=== PATIENT | male | born 1965 | race Caucasian/White ===

== ENCOUNTER 2018-10-30 05:48 | Emergency (ER) | payer OTHER ==
[2018-10-30 06:16] VITALS: BP 175/90; PULSE 82; TEMP 98.8; BMI 30.7
== END 2018-10-30 06:48 | disposition left against medical advice (07) ==
LOC: JER 05:48
DX: Z53.21 Procedure and treatment not carried out due to patient leaving prior to being seen by health care provider (principal)
CPT/HCPCS: 99281-25

== ENCOUNTER 2019-02-25 09:12 | Emergency (ER) | payer OTHER ==
[2019-02-25 09:44] VITALS: BP 146/75; PULSE 95; TEMP 102; BMI 70.7
== END 2019-02-25 09:52 | disposition left against medical advice (07) ==
LOC: JER 09:12
DX: R50.9 Fever, unspecified (principal)
CPT/HCPCS: 99283-25

== ENCOUNTER 2020-01-06 21:52 | Inpatient (IN) | payer OTHER ==
[2020-01-06] MEDS ORDERED: VANCOMYCIN 1,000 MG in DEXTROSE 5%-WATER - 250 ML IVPB ONE (22:13)
[2020-01-06] MEDS ORDERED: PIPERACILLIN/TAZOB 4.5 GM 4.5 GM in DEXTROSE 5%-WATER 100 ML IVPB ONE (22:13)
[2020-01-06] MEDS ORDERED: ACETAMINOPHEN 1000 MG/100 ML VIAL (NON FORMULARY) IVPB ONE (22:26)
[2020-01-06 22:35] LABS: VENOUS BASE EXCESS 2.9 mmol/L (-2-2); VENOUS O2 SATURATION 89.4 % (70-80); VENOUS PCO2 38.4 mmHg (38-52); VENOUS PH 7.461 (7.310-7.410)
[2020-01-06 22:36] LABS: BASO % 0.5 % (0-2.0); EOS % 2.9 % (0-4.5); HEMATOCRIT 40.9 % (35.4-49); HEMOGLOBIN 13.8 GM/dL (11.7-16.9); LYMPH % 18.2 % (8-40); MCH 22.7 pg (25.7-33.7); MCHC 33.6 g/dl (32.0-35.9); MEAN CELL VOLUME 67.5 fl (80-96); MEAN PLT VOLUME 8.3 fl (7.5-11.1); MONO % 17.8 % (3.8-10.2); NEUT % 60.6 % (42.8-82.8); PLATELET COUNT 245 K/MM3 (134-434); RBC 6.06 M/mm3 (4.00-5.60); RDW 17.6 % (11.9-15.9); WHITE BLOOD COUNT 8.9 K/mm3 (4.0-10.0)
[2020-01-06] MEDS ORDERED: ACETAMINOPHEN INJECTION 100 ML IVPB ONE (22:36)
[2020-01-06] MEDS ORDERED: PIPERACILLIN/TAZOB 4.5 GM 4.5 GM/100 ML BAG IVPB ONE (22:36)
[2020-01-06] MEDS ORDERED: VANCOMYCIN 1 GRAM (PRE-DOCKED) 1,000 MG/250 ML BAG IVPB ONE (22:37)
[2020-01-06 22:45] LABS: PH,URINE >= 9.0 (5.0-8.0); URINE APPEARANCE CLEAR; URINE BILIRUBIN NEGATIVE (NEGATIVE); URINE COLOR YELLOW; URINE GLUCOSE (UA) NEGATIVE (NEGATIVE); URINE KETONE NEGATIVE (NEGATIVE); URINE LEUK ESTERASE NEGATIVE (NEGATIVE); URINE NITRITE NEGATIVE (NEGATIVE); URINE PROTEIN NEGATIVE (NEGATIVE); URINE UROBILINOGEN 0.2 mg/dL (0.2-1.0)
[2020-01-06 22:50] LABS: INR 1.03 (0.83-1.09); PROTHROMBIN TIME (PATIENT) 12.5 SEC (9.7-13.0)
[2020-01-06 22:52] LABS: ACTIVATED PTT 29.8 SECONDS (25.2-36.5)
[2020-01-06 22:56] LABS: COCAINE, UR NEGATIVE ng/ml (CUTOFF=300); METHADONE, UR NEGATIVE ng/ml (CUTOFF=300); OPIATES, URI NEGATIVE ng/ml (CUTOFF=300); PHENCYCLIDINE,URINE NEGATIVE ng/ml (CUTOFF=25); URINE AMPHETAMINES NEGATIVE ng/ml (CUTOFF=500); URINE BARBITURATES NEGATIVE ng/ml (CUTOFF=200); URINE BENZODIAZEPINES NEGATIVE ng/ml (CUTOFF=200)
[2020-01-06 23:04] LABS: ALBUMIN 3.1 g/dl (3.4-5.0); BLOOD UREA NITROGEN 9.4 mg/dL (7-18)
[2020-01-06 23:08] LABS: CREATININE 0.5 mg/dL (0.55-1.3)
[2020-01-06 23:09] LABS: BILIRUBIN,TOTAL 0.4 mg/dL (0.2-1); TOT PROT 7.7 g/dl (6.4-8.2)
[2020-01-06 23:15] LABS: N-TERMINAL BNP 153.3 pg/ml (5-125)
[2020-01-06] MEDS ORDERED: SODIUM CHLORIDE 500 ML IV STA (23:18)
[2020-01-07] MEDS ORDERED: ACETAMINOPHEN 1000 MG/100 ML VIAL (NON FORMULARY) IVPB PRN (02:21)
[2020-01-07 05:16] VITALS: BMI 31.1
[2020-01-07] MEDS ORDERED: PIPERACILLIN/TAZOBACTAM 3.375 GM VIAL IVPB ONE ×2 (05:42→08:51)
[2020-01-07] MEDS ORDERED: DEXTROSE 5%-WATER - 50 ML IVPB ONE ×2 (05:42→08:51)
[2020-01-07] MEDS: PIPERACILLIN/TAZOB 3.375 GM 3.375 GM in DEXTROSE 5%-WATER - 50 ML IVPB SCH ×2 (06:21→09:44)
[2020-01-07 07:37] LABS: BASO % 0.3 % (0-2.0); HEMATOCRIT 40.6 % (35.4-49); HEMOGLOBIN 13.7 GM/dL (11.7-16.9); LYMPH % 18.3 % (8-40); MCH 22.9 pg (25.7-33.7); MCHC 33.8 g/dl (32.0-35.9); MEAN CELL VOLUME 67.8 fl (80-96); MEAN PLT VOLUME 7.5 fl (7.5-11.1); MONO % 14.5 % (3.8-10.2); NEUT % 64.9 % (42.8-82.8); RBC 5.99 M/mm3 (4.00-5.60); RDW 18.1 % (11.9-15.9); WHITE BLOOD COUNT 7.8 K/mm3 (4.0-10.0)
[2020-01-07 07:50] LABS: POTASSIUM 3.8 mmol/L (3.5-5.1)
[2020-01-07 08:06] LABS: ALBUMIN 3.2 g/dl (3.4-5.0); MAGNESIUM 2.2 mg/dL (1.8-2.4)
[2020-01-07 08:07] LABS: BLOOD UREA NITROGEN 4.9 mg/dL (7-18)
[2020-01-07 08:09] LABS: CREATININE 0.5 mg/dL (0.55-1.3); PHOSPHOROUS 2.7 mg/dL (2.5-4.9)
[2020-01-07 08:10] LABS: TOT PROT 7.8 g/dl (6.4-8.2)
[2020-01-07 08:12] LABS: BILIRUBIN,TOTAL 0.7 mg/dL (0.2-1)
[2020-01-07 09:42] LABS: PLATELET ESTIMATE NORMAL
[2020-01-07] MEDS ORDERED: ENOXAPARIN NA (PORCINE) 40 MG/0.4 ML DISP.SYRIN SQ SCH (10:00)
[2020-01-07] MEDS ORDERED: BACITRACIN 15 GM TUBE TOPICAL OINTMENT TP SCH (10:00)
[2020-01-07 10:15] LABS: PLATELET COUNT 235 K/MM3 (134-434)
[2020-01-07 11:15] VITALS: BP 140/70; PULSE 72; TEMP 98.5
[2020-01-07] MEDS ORDERED: VANCOMYCIN 1 GRAM (PRE-DOCKED) 1,000 MG/250 ML BAG IVPB SCH (12:00)
[2020-01-08] MEDS ORDERED: PIPERACILLIN/TAZOB 3.375 GM 3.375 GM in DEXTROSE 5%-WATER - 50 ML IVPB SCH (02:00)
[2020-01-08] MEDS ORDERED: VANCOMYCIN 1 GRAM (PRE-DOCKED) 1,000 MG/250 ML BAG IVPB SCH (12:00)
== END 2020-01-07 11:13 | disposition left against medical advice (07) | DRG 383 ==
LOC: JER 21:52 → JERBED 23:57 → J8W 01-07 04:38
PROVIDERS: ADMIT Internal Medicine; ATTEND Family Medicine
DX: L03.115 Cellulitis of right lower limb (principal); L03.116 Cellulitis of left lower limb; F31.9 Bipolar disorder, unspecified; D72.829 Elevated white blood cell count, unspecified; F19.10 Other psychoactive substance abuse, uncomplicated; R79.1 Abnormal coagulation profile; J98.11 Atelectasis; I11.0 Hypertensive heart disease with heart failure; E88.09 Other disorders of plasma-protein metabolism, not elsewhere classified; I50.9 Heart failure, unspecified; L97.828 Non-pressure chronic ulcer of other part of left lower leg with other specified severity; L97.818 Non-pressure chronic ulcer of other part of right lower leg with other specified severity; F32.9 Major depressive disorder, single episode, unspecified; E66.9 Obesity, unspecified; Z68.31 Body mass index [BMI] 31.0-31.9, adult
CPT/HCPCS: 36415; 71045-TC-FY; 80053; 80307; 81003; 82803; 83036; 83605; 83735; 83880; 84100; 84484; 85025; 85379; 85610; 85730; 86140; 87040; 87086; 93005; 93010; 99285-25; C9803; J0131; U0003

== ENCOUNTER 2020-10-21 03:03 | Inpatient (IN) | payer OTHER ==
[2020-10-21 03:58] LABS: HEMATOCRIT 42.4 % (35.4-49); HEMOGLOBIN 13.1 GM/dL (11.7-16.9); MCHC 30.8 g/dl (32.0-35.9); MEAN CELL VOLUME 51.9 fl (80-96); MEAN PLT VOLUME 8.1 fl (7.5-11.1); PLATELET COUNT 463 10^3/uL (134-434); RBC 8.18 M/mm3 (4.00-5.60); RDW 21.4 % (11.9-15.9)
[2020-10-21 03:59] LABS: WHITE BLOOD COUNT 30.3 K/mm3 (4.0-10.0)
[2020-10-21 04:08] LABS: INR 1.15 (0.83-1.09); PROTHROMBIN TIME (PATIENT) 14.1 SEC (9.7-13.0)
[2020-10-21 04:09] LABS: VENOUS BASE EXCESS -13.5 mmol/L (-2-2); VENOUS O2 SATURATION 99.2 % (70-80); VENOUS PCO2 49.4 mmHg (38-52)
[2020-10-21 04:10] LABS: ACTIVATED PTT 31.8 SECONDS (25.2-36.5)
[2020-10-21 04:13] LABS: VENOUS PH 7.121 (7.310-7.410)
[2020-10-21] MEDS ORDERED: VANCOMYCIN 1 GM in D5W (PRE-DOCKED) 1,000 MG/250 ML IVPB ONE (04:13)
[2020-10-21] MEDS ORDERED: PIPERACILLIN/TAZOB 3.375 GM 3.375 GM in DEXTROSE 5%-WATER - 50 ML IVPB ONE (04:13)
[2020-10-21] MEDS ORDERED: MIDAZOLAM IN 0.9 % SOD.CHLORID 100 MG/100 ML PLAST..BAG IVPB SCH ×2 (04:15→19:27)
[2020-10-21] MEDS ORDERED: levETIRAcetam 500 MG/5 ML INJECTION VIAL IVPB ONE ×2 (04:16→04:26)
[2020-10-21 04:17] LABS: CHLORIDE 85 mmol/L (98-107); SODIUM 127 mmol/L (136-145)
[2020-10-21 04:19] LABS: ALBUMIN 3.4 g/dl (3.4-5.0); ANION GAP 26 MMOL/L (8-16); BLOOD UREA NITROGEN 20.2 mg/dL (7-18); CALCIUM 9.1 mg/dL (8.5-10.1); CO2 15 mmol/L (21-32); GLUCOSE,RANDOM 241 mg/dL (74-106)
[2020-10-21 04:21] LABS: CREATININE 1.7 mg/dL (0.55-1.3); SGOT/AST 20 U/L (15-37); SGPT/ALT 19 U/L (13-61)
[2020-10-21 04:24] LABS: BILIRUBIN,TOTAL 0.7 mg/dL (0.2-1); TOT PROT 10.2 g/dl (6.4-8.2)
[2020-10-21 04:25] LABS: ALK PHOS 233 U/L (45-117)
[2020-10-21] MEDS ORDERED: PIPERACILLIN/TAZOB 3.375 GM 3.375 GM/50 ML BAG IVPB ONE (04:27)
[2020-10-21] MEDS ORDERED: VANCOMYCIN 1 GRAM (PRE-DOCKED) 1,000 MG/250 ML BAG IVPB ONE (04:27)
[2020-10-21 04:29] LABS: LACTIC ACID > 15.0 mmol/L (0.4-2.0)
[2020-10-21] MEDS ORDERED: ACETAMINOPHEN 1000 MG/100 ML VIAL (NON FORMULARY) IVPB ONE (04:34)
[2020-10-21] MEDS ORDERED: ACETAMINOPHEN INJECTION 100 ML IVPB ONE (04:54)
[2020-10-21 05:42] LABS: ANISOCYTOSIS 2+; MACROCYTOSIS 0; PLATELET ESTIMATE NORMAL
[2020-10-21] MEDS ORDERED: PROPOFOL 1,000,000 MCG/100 ML VIAL ONE (05:43)
[2020-10-21] MEDS ORDERED: LACTATED RINGERS SOLUTION 1,000 ML/1,000 ML INFUS.BAG IV SCH ×2 (05:45→13:29)
[2020-10-21] MEDS: PROPOFOL 1,000,000 MCG/100 ML VIAL IVPB SCH ×2 (05:55→13:28)
[2020-10-21 05:57] LABS: EPI CELLS 26 /uL (0-25.1); HYALINE CASTS 43 /uL (0-3.1); PH,URINE 5.5 (5.0-8.0); URINE APPEARANCE TURBID; URINE BILIRUBIN NEGATIVE (NEGATIVE); URINE COLOR DK YELLOW; URINE GLUCOSE (UA) TRACE (NEGATIVE); URINE KETONE TRACE (NEGATIVE); URINE LEUK ESTERASE NEGATIVE (NEGATIVE); URINE NITRITE NEGATIVE (NEGATIVE); URINE PROTEIN 4+ (NEGATIVE)
[2020-10-21 06:29] LABS: URINE AMPHETAMINES NEGATIVE (NEGATIVE)
[2020-10-21 06:46] LABS: COCAINE, UR NEGATIVE (NEGATIVE); METHADONE, UR NEGATIVE (NEGATIVE); OPIATES, URI POSITIVE (NEGATIVE); PHENCYCLIDINE,URINE NEGATIVE (NEGATIVE); URINE BARBITURATES NEGATIVE (NEGATIVE); URINE BENZODIAZEPINES NEGATIVE (NEGATIVE)
[2020-10-21 07:33] LABS: URINE BACTERIA 4551.6 /uL (0-1359); URINE RBC 573.8 /uL (0-23.9); URINE WBC 5675.5 /uL (0-25.8); YEAST NON SEEN (NEGATIVE)
[2020-10-21] MEDS ORDERED: LACTATED RINGERS SOLUTION 1000 ML INFUS.BAG IV ONE (08:15)
[2020-10-21] MEDS ORDERED: SODIUM CHLORIDE 0.9% 500 ML INFUS.BAG IV ONE (08:23)
[2020-10-21] MEDS ORDERED: FENTANYL NS IVPB 500 MCG/100 ML BAG IVPB SCH (09:30)
[2020-10-21] MEDS ORDERED: HYDROmorphone HCl 2 MG/ML VIAL ONE ×5 (09:59→11:39)
[2020-10-21] MEDS ORDERED: ROCURONIUM BROMIDE 50 MG/5 ML SYRINGE ONE ×2 (09:59→11:51)
[2020-10-21] MEDS ORDERED: MUPIROCIN 2% TOPICAL OINTMENT FOR DECOLONIZATION NS SCH ×2 (10:00→22:00)
[2020-10-21] MEDS ORDERED: ENOXAPARIN NA (PORCINE) 40 MG/0.4 ML DISP.SYRIN SQ SCH (10:00)
[2020-10-21] MEDS ORDERED: PROPOFOL 20 ML ONE ×2 (10:58)
[2020-10-21 11:22] LABS: BLOOD UREA NITROGEN 24.6 mg/dL (7-18); MAGNESIUM 2.2 mg/dL (1.8-2.4)
[2020-10-21 11:25] LABS: BILIRUBIN,TOTAL 0.7 mg/dL (0.2-1); CREATININE 1.2 mg/dL (0.55-1.3); PHOSPHOROUS 4.3 mg/dL (2.5-4.9); TOT PROT 8.9 g/dl (6.4-8.2)
[2020-10-21 11:27] LABS: LACTIC ACID 2.1 mmol/L (0.4-2.0)
[2020-10-21 11:28] LABS: HEMATOCRIT 40.3 % (35.4-49); HEMOGLOBIN 12.1 GM/dL (11.7-16.9); MCHC 30.1 g/dl (32.0-35.9); MEAN CELL VOLUME 50.4 fl (80-96); MEAN PLT VOLUME 8.1 fl (7.5-11.1); PLATELET COUNT 305 10^3/uL (134-434); RDW 20.7 % (11.9-15.9); WHITE BLOOD COUNT 27.5 K/mm3 (4.0-10.0)
[2020-10-21 11:29] LABS: MCH 15.2 pg (25.7-33.7)
[2020-10-21] MEDS ORDERED: MIDAZOLAM HCL 2 MG/2 ML SINGLE DOSE VIAL ONE (11:51)
[2020-10-21] MEDS ORDERED: PIPERACILLIN/TAZOB 3.375 GM 3.375 GM in DEXTROSE 5%-WATER - 50 ML IVPB SCH ×2 (12:00→18:00)
[2020-10-21 12:05] LABS: ANISOCYTOSIS 3+; MACROCYTOSIS 0; PLATELET ESTIMATE NORMAL; ROULEAU 0
[2020-10-21] MEDS ORDERED: LABETALOL HCL 5 MG/1 ML (100MG/20 ML VIAL) IVPUSH PRN ×2 (14:14→14:19)
[2020-10-21] MEDS: SODIUM CHLORIDE 1,000 ML IV SCH ×2 (14:30→20:53)
[2020-10-21] MEDS: HEPARIN NA (PORCINE) 5,000 UNITS/ML 1ML VIAL SQ SCH ×3 (15:00→21:10)
[2020-10-21] MEDS ORDERED: FENTANYL IVPB 500 MCG/100 ML BAG IVPB ONE (15:55)
[2020-10-21] MEDS ORDERED: PT OWN MED DRAWER 7, Y5N ONE (17:07)
[2020-10-21] MEDS ORDERED: DEXTROSE 5%-WATER - 50 ML IVPB ONE (17:40)
[2020-10-21] MEDS ORDERED: PIPERACILLIN/TAZOBACTAM 3.375 GM VIAL IVPB ONE (17:40)
[2020-10-21] MEDS ORDERED: PROPOFOL 1,000,000 MCG/100 ML VIAL IVPB SCH (19:27)
[2020-10-21] MEDS: FENTANYL NS IVPB 500 MCG/100 ML BAG IVPB SCH (19:30)
[2020-10-21] MEDS: CHLORHEXIDINE GLUCONATE 4% CLEANSER FOR DECOLONIZATION TP SCH (21:01)
[2020-10-21] MEDS: MUPIROCIN 2% TOPICAL OINTMENT FOR DECOLONIZATION NS SCH (21:01)
[2020-10-21] MEDS ORDERED: CHLORHEXIDINE GLUCONATE 4% CLEANSER FOR DECOLONIZATION TP SCH ×2 (22:00)
[2020-10-22] MEDS: DEXTROSE 5%-LACTATED RINGERS 1,000 ML IV SCH ×2 (01:05→13:03)
[2020-10-22] MEDS ORDERED: DEXTROSE 5%-WATER - 50 ML IVPB ONE ×3 (01:24→17:24)
[2020-10-22] MEDS ORDERED: PIPERACILLIN/TAZOBACTAM 3.375 GM VIAL IVPB ONE ×3 (01:24→17:24)
[2020-10-22] MEDS: PIPERACILLIN/TAZOB 3.375 GM 3.375 GM in DEXTROSE 5%-WATER - 50 ML IVPB SCH ×3 (01:26→17:26)
[2020-10-22] MEDS: FENTANYL NS IVPB 500 MCG/100 ML BAG IVPB SCH ×3 (03:30→21:22)
[2020-10-22] MEDS: SODIUM CHLORIDE 1,000 ML IV SCH (04:00)
[2020-10-22] MEDS: HEPARIN NA (PORCINE) 5,000 UNITS/ML 1ML VIAL SQ SCH ×3 (05:49→21:22)
[2020-10-22 06:55] LABS: BASO % 0.1 % (0-2.0); HEMATOCRIT 36.4 % (35.4-49); HEMOGLOBIN 11.1 GM/dL (11.7-16.9); LYMPH % 5.8 % (8-40); MCHC 30.4 g/dl (32.0-35.9); MEAN PLT VOLUME 8.1 fl (7.5-11.1); MONO % 13.9 % (3.8-10.2); NEUT % 80.2 % (42.8-82.8); PLATELET COUNT 272 10^3/uL (134-434); RDW 20.2 % (11.9-15.9); WHITE BLOOD COUNT 16.2 K/mm3 (4.0-10.0)
[2020-10-22 06:57] LABS: MCH 15.5 pg (25.7-33.7); RBC 7.14 M/mm3 (4.00-5.60)
[2020-10-22 07:07] LABS: ALBUMIN 2.5 g/dl (3.4-5.0); CALCIUM 8.2 mg/dL (8.5-10.1); MAGNESIUM 2.4 mg/dL (1.8-2.4)
[2020-10-22 07:09] LABS: BLOOD UREA NITROGEN 32.3 mg/dL (7-18)
[2020-10-22 07:11] LABS: CREATININE 0.9 mg/dL (0.55-1.3)
[2020-10-22 07:12] LABS: BILIRUBIN,TOTAL 0.8 mg/dL (0.2-1); PHOSPHOROUS 3.7 mg/dL (2.5-4.9); TOT PROT 7.5 g/dl (6.4-8.2)
[2020-10-22] MEDS: MUPIROCIN 2% TOPICAL OINTMENT FOR DECOLONIZATION NS SCH ×2 (09:00→21:22)
[2020-10-22] MEDS ORDERED: morphine CARPU-JECT 4 MG/1 ML DISP.SYRIN IVPUSH PRN (12:30)
[2020-10-22] MEDS ORDERED: LACTATED RINGERS SOLUTION 1,000 ML/1,000 ML INFUS.BAG IV SCH (12:30)
[2020-10-22] MEDS ORDERED: HYDROmorphone HCL CARPU-JECT 2 MG/1 ML DISP.SYRIN IVPUSH PRN (12:52)
[2020-10-22] MEDS ORDERED: HYDROmorphone HCl 2 MG/ML VIAL ONE (12:54)
[2020-10-22] MEDS: PANTOPRAZOLE SODIUM 40 MG VIAL IVPUSH SCH (12:59)
[2020-10-22] MEDS: LABETALOL HCL 5 MG/1 ML (100MG/20 ML VIAL) IVPUSH PRN ×4 (13:01→21:23)
[2020-10-22] MEDS: morphine SULFATE 4 MG/ML VIAL IVPUSH PRN (13:10)
[2020-10-22] MEDS: PROPOFOL 1,000,000 MCG/100 ML VIAL IVPB SCH ×2 (13:29→20:00)
[2020-10-22] MEDS ORDERED: SODIUM CHLORIDE 1,000 ML IV SCH (14:15)
[2020-10-22] MEDS ORDERED: MIDAZOLAM IN 0.9 % SOD.CHLORID 1 MG/1 ML PLAST..BAG ONE (20:57)
[2020-10-22] MEDS: CHLORHEXIDINE GLUCONATE 4% CLEANSER FOR DECOLONIZATION TP SCH (21:22)
[2020-10-22] MEDS: MIDAZOLAM 100 MG in SODIUM CHLORIDE 100 ML IVPB SCH (21:22)
[2020-10-23] MEDS: PROPOFOL 1,000,000 MCG/100 ML VIAL IVPB SCH ×2 (01:00→12:45)
[2020-10-23] MEDS ORDERED: PIPERACILLIN/TAZOBACTAM 3.375 GM VIAL IVPB ONE ×3 (02:06→17:23)
[2020-10-23] MEDS ORDERED: DEXTROSE 5%-WATER - 50 ML IVPB ONE ×3 (02:06→17:24)
[2020-10-23] MEDS: PIPERACILLIN/TAZOB 3.375 GM 3.375 GM in DEXTROSE 5%-WATER - 50 ML IVPB SCH ×3 (02:28→17:43)
[2020-10-23] MEDS: FENTANYL NS IVPB 500 MCG/100 ML BAG IVPB SCH ×2 (02:33→19:40)
[2020-10-23] MEDS: HEPARIN NA (PORCINE) 5,000 UNITS/ML 1ML VIAL SQ SCH ×3 (06:22→21:15)
[2020-10-23 07:09] LABS: BASO % 0.2 % (0-2.0); EOS % 0.2 % (0-4.5); HEMATOCRIT 32.2 % (35.4-49); HEMOGLOBIN 9.5 GM/dL (11.7-16.9); LYMPH % 5.7 % (8-40); MCHC 29.5 g/dl (32.0-35.9); MEAN CELL VOLUME 51.6 fl (80-96); MEAN PLT VOLUME 8.7 fl (7.5-11.1); MONO % 9.3 % (3.8-10.2); NEUT % 84.6 % (42.8-82.8); PLATELET COUNT 238 10^3/uL (134-434); RBC 6.24 M/mm3 (4.00-5.60); RDW 20.6 % (11.9-15.9); WHITE BLOOD COUNT 16.4 K/mm3 (4.0-10.0)
[2020-10-23 07:17] LABS: MCH 15.2 pg (25.7-33.7)
[2020-10-23 07:21] LABS: CALCIUM 8.1 mg/dL (8.5-10.1)
[2020-10-23 07:23] LABS: ALBUMIN 2.2 g/dl (3.4-5.0); BLOOD UREA NITROGEN 21.4 mg/dL (7-18); MAGNESIUM 2.2 mg/dL (1.8-2.4)
[2020-10-23 07:26] LABS: CREATININE 0.7 mg/dL (0.55-1.3); PHOSPHOROUS 1.7 mg/dL (2.5-4.9)
[2020-10-23 07:28] LABS: TOT PROT 6.6 g/dl (6.4-8.2)
[2020-10-23] MEDS: PANTOPRAZOLE SODIUM 40 MG VIAL IVPUSH SCH (09:35)
[2020-10-23] MEDS ORDERED: POTASSIUM PHOSPHATE 30 MM in SODIUM CHLORIDE 250 ML IVPB ONE (09:45)
[2020-10-23] MEDS: MUPIROCIN 2% TOPICAL OINTMENT FOR DECOLONIZATION NS SCH ×2 (09:46→21:11)
[2020-10-23] MEDS: DEXMEDETOMIDINE IN 0.9 % NACL 400 MCG/100 ML VIAL IVPB SCH ×2 (10:49→21:12)
[2020-10-23] MEDS: DEXTROSE 5%-LACTATED RINGERS 1,000 ML IV SCH ×2 (12:41→19:40)
[2020-10-23] MEDS ORDERED: PT OWN MED DRAWER 7, Y5N ONE ×2 (15:24→19:45)
[2020-10-23] MEDS ORDERED: ACETAMINOPHEN INJECTION 100 ML IVPB ONE (20:38)
[2020-10-23] MEDS: MIDAZOLAM 100 MG in SODIUM CHLORIDE 100 ML IVPB SCH (21:11)
[2020-10-23] MEDS: CHLORHEXIDINE GLUCONATE 4% CLEANSER FOR DECOLONIZATION TP SCH (21:11)
[2020-10-24] MEDS ORDERED: DEXTROSE 5%-WATER - 50 ML IVPB ONE ×3 (00:01→17:28)
[2020-10-24] MEDS ORDERED: PIPERACILLIN/TAZOBACTAM 3.375 GM VIAL IVPB ONE ×3 (00:01→17:28)
[2020-10-24] MEDS: DEXMEDETOMIDINE IN 0.9 % NACL 400 MCG/100 ML VIAL IVPB SCH ×4 (01:15→09:55)
[2020-10-24] MEDS: PROPOFOL 1,000,000 MCG/100 ML VIAL IVPB SCH ×3 (01:16→13:20)
[2020-10-24] MEDS: PIPERACILLIN/TAZOB 3.375 GM 3.375 GM in DEXTROSE 5%-WATER - 50 ML IVPB SCH ×3 (01:18→17:35)
[2020-10-24] MEDS: FENTANYL NS IVPB 500 MCG/100 ML BAG IVPB SCH ×2 (01:27→19:27)
[2020-10-24] MEDS: HEPARIN NA (PORCINE) 5,000 UNITS/ML 1ML VIAL SQ SCH ×3 (05:23→22:30)
[2020-10-24 07:37] LABS: BASO % 0.1 % (0-2.0); EOS % 0.3 % (0-4.5); HEMATOCRIT 28.2 % (35.4-49); HEMOGLOBIN 8.5 GM/dL (11.7-16.9); LYMPH % 8.8 % (8-40); MEAN CELL VOLUME 51.2 fl (80-96); MEAN PLT VOLUME 8.4 fl (7.5-11.1); MONO % 9.4 % (3.8-10.2); NEUT % 81.4 % (42.8-82.8); PLATELET COUNT 217 10^3/uL (134-434); RBC 5.51 M/mm3 (4.00-5.60); RDW 20.7 % (11.9-15.9); WHITE BLOOD COUNT 10.3 K/mm3 (4.0-10.0)
[2020-10-24 08:01] LABS: BLOOD UREA NITROGEN 13.3 mg/dL (7-18); CALCIUM 7.5 mg/dL (8.5-10.1)
[2020-10-24 08:03] LABS: MCH 15.3 pg (25.7-33.7)
[2020-10-24 08:05] LABS: CREATININE 0.5 mg/dL (0.55-1.3); PHOSPHOROUS 1.8 mg/dL (2.5-4.9)
[2020-10-24 08:40] LABS: ANISOCYTOSIS 3+; MACROCYTOSIS 0; PLATELET ESTIMATE NORMAL
[2020-10-24] MEDS ORDERED: POTASSIUM PHOSPHATE 30 MM in DEXTROSE 5%-WATER - 250 ML IVPB ONE (09:30)
[2020-10-24] MEDS: PANTOPRAZOLE SODIUM 40 MG VIAL IVPUSH SCH (09:47)
[2020-10-24] MEDS: MUPIROCIN 2% TOPICAL OINTMENT FOR DECOLONIZATION NS SCH ×2 (10:18→22:30)
[2020-10-24] MEDS: LABETALOL HCL 5 MG/1 ML (100MG/20 ML VIAL) IVPUSH PRN (10:18)
[2020-10-24] MEDS ORDERED: ACETAMINOPHEN 1000 MG/100 ML VIAL (NON FORMULARY) IVPB PRN (10:23)
[2020-10-24] MEDS ORDERED: LORazepam 2 MG/ML SDV VIAL IVPUSH ONE (13:00)
[2020-10-24] MEDS ORDERED: LORazepam 2 MG/ML SDV VIAL IVPUSH PRN (22:00)
[2020-10-24] MEDS: CHLORHEXIDINE GLUCONATE 4% CLEANSER FOR DECOLONIZATION TP SCH (22:30)
[2020-10-24] MEDS: DEXTROSE 5%-LACTATED RINGERS 1,000 ML IV SCH (23:45)
[2020-10-25] MEDS ORDERED: DEXTROSE 5%-WATER - 50 ML IVPB ONE ×3 (00:36→18:04)
[2020-10-25] MEDS ORDERED: PIPERACILLIN/TAZOBACTAM 3.375 GM VIAL IVPB ONE ×3 (00:36→18:04)
[2020-10-25] MEDS: PIPERACILLIN/TAZOB 3.375 GM 3.375 GM in DEXTROSE 5%-WATER - 50 ML IVPB SCH ×3 (01:12→18:05)
[2020-10-25] MEDS: HEPARIN NA (PORCINE) 5,000 UNITS/ML 1ML VIAL SQ SCH ×3 (06:10→21:05)
[2020-10-25 07:53] LABS: ALBUMIN 2.4 g/dl (3.4-5.0); BLOOD UREA NITROGEN 10.7 mg/dL (7-18); MAGNESIUM 1.5 mg/dL (1.8-2.4)
[2020-10-25 07:57] LABS: CREATININE 0.5 mg/dL (0.55-1.3)
[2020-10-25 07:58] LABS: BILIRUBIN,TOTAL 2.8 mg/dL (0.2-1); TOT PROT 8.1 g/dl (6.4-8.2)
[2020-10-25 08:01] LABS: BASO % 0.2 % (0-2.0); EOS % 0.6 % (0-4.5); HEMATOCRIT 28.8 % (35.4-49); HEMOGLOBIN 8.6 GM/dL (11.7-16.9); MCH 15.1 pg (25.7-33.7); MEAN CELL VOLUME 50.5 fl (80-96); MEAN PLT VOLUME 8.2 fl (7.5-11.1); MONO % 8.4 % (3.8-10.2); NEUT % 79.8 % (42.8-82.8); PLATELET COUNT 255 10^3/uL (134-434); RBC 5.71 M/mm3 (4.00-5.60); RDW 21.2 % (11.9-15.9)
[2020-10-25] MEDS ORDERED: PT OWN MED DRAWER 7, Y5N ONE ×3 (08:47→14:01)
[2020-10-25] MEDS ORDERED: POTASSIUM PHOSPHATE 15 MM in SODIUM CHLORIDE 100 ML IVPB ONE (09:26)
[2020-10-25] MEDS ORDERED: MAGNESIUM SULF 50% (8.12 MEQ/2 ML-1 GM VIAL) IVPB ONE (09:26)
[2020-10-25] MEDS: MIDAZOLAM 100 MG in SODIUM CHLORIDE 100 ML IVPB SCH (09:26)
[2020-10-25] MEDS: morphine SULFATE 4 MG/ML VIAL IVPUSH PRN (09:29)
[2020-10-25] MEDS: POTASSIUM CHLORIDE 20 MEQ PREMIX IVPB 100 ML IVPB SCH ×3 (09:30→10:59)
[2020-10-25] MEDS: MUPIROCIN 2% TOPICAL OINTMENT FOR DECOLONIZATION NS SCH ×2 (10:20→21:37)
[2020-10-25] MEDS: PANTOPRAZOLE SODIUM 40 MG VIAL IVPUSH SCH (10:20)
[2020-10-25] MEDS ORDERED: DEXTROSE 5%-NORMAL SALINE 1,000 ML IV SCH (10:45)
[2020-10-25] MEDS ORDERED: POTASSIUM CHLORIDE TABS 20 MEQ TABLET.ER (FP) PO ONE ×3 (13:47→20:00)
[2020-10-25] MEDS ORDERED: PROPOFOL 1,000,000 MCG/100 ML VIAL IVPB SCH (14:27)
[2020-10-25] MEDS ORDERED: morphine SULFATE 4 MG/ML VIAL IVPUSH PRN (14:27)
[2020-10-25] MEDS ORDERED: LABETALOL HCL 5 MG/1 ML (100MG/20 ML VIAL) IVPUSH PRN (14:27)
[2020-10-25] MEDS ORDERED: NAPH,MB-DB/K PH,MBDB POWDER PACKET PO ONE ×2 (14:29→17:00)
[2020-10-25 16:02] VITALS: BMI 28.7
[2020-10-25] MEDS ORDERED: DOCUSATE SODIUM 100 MG CAPSULE (FP) PO PRN (16:21)
[2020-10-25] MEDS: LORazepam 0.5 MG TABLET PO PRN ×2 (16:41→21:35)
[2020-10-25] MEDS: DEXTROSE 5%-NORMAL SALINE 1,000 ML IV SCH (16:49)
[2020-10-25] MEDS ORDERED: LORazepam 1 MG TABLET PO ONE (21:11)
[2020-10-25] MEDS ORDERED: morphine SO4 SUSTAINED ACTING 100 MG TABLET.SA PO SCH (22:00)
[2020-10-25] MEDS ORDERED: CHLORHEXIDINE GLUCONATE 4% CLEANSER FOR DECOLONIZATION TP SCH (22:00)
[2020-10-26] MEDS ORDERED: LORazepam 2 MG/ML SDV VIAL IM PRN (01:23)
[2020-10-26] MEDS ORDERED: LORazepam 2 MG/ML SDV VIAL IM ONE (01:25)
[2020-10-26] MEDS: PIPERACILLIN/TAZOB 3.375 GM 3.375 GM in DEXTROSE 5%-WATER - 50 ML IVPB SCH ×3 (02:09→19:19)
[2020-10-26] MEDS: HEPARIN NA (PORCINE) 5,000 UNITS/ML 1ML VIAL SQ SCH ×3 (06:07→22:16)
[2020-10-26] MEDS: LORazepam 2 MG/ML SDV VIAL IM PRN ×2 (08:57→13:40)
[2020-10-26] MEDS ORDERED: NAPH,MB-DB/K PH,MBDB POWDER PACKET PO ONE (09:04)
[2020-10-26] MEDS ORDERED: MAGNESIUM SULF 50% (8.12 MEQ/2 ML-1 GM VIAL) IVPB ONE (09:30)
[2020-10-26] MEDS: MUPIROCIN 2% TOPICAL OINTMENT FOR DECOLONIZATION NS SCH ×2 (09:46→22:16)
[2020-10-26] MEDS ORDERED: PIPERACILLIN/TAZOBACTAM 3.375 GM VIAL IVPB ONE ×2 (09:50→17:07)
[2020-10-26] MEDS ORDERED: DEXTROSE 5%-WATER - 50 ML IVPB ONE ×2 (09:50→17:07)
[2020-10-26] MEDS: DEXTROSE 5%-NORMAL SALINE 1,000 ML IV SCH (09:56)
[2020-10-26] MEDS ORDERED: PANTOPRAZOLE SODIUM 40 MG VIAL IVPUSH SCH (10:00)
[2020-10-26 10:51] LABS: ARTERIAL BLD GAS O2 SATURATION 96.3 % (95-98); ARTERIAL BLOOD GAS PO2 79.7 mmHg (80-100); ARTERIAL BLOOD GAS pH 7.435 (7.350-7.450)
[2020-10-26 10:52] LABS: ALLENS TEST POSITIVE
[2020-10-26 11:40] LABS: ALBUMIN 2.7 g/dl (3.4-5.0); CALCIUM 8.8 mg/dL (8.5-10.1)
[2020-10-26 11:41] LABS: BLOOD UREA NITROGEN 15.1 mg/dL (7-18); MAGNESIUM 2.6 mg/dL (1.8-2.4)
[2020-10-26 11:44] LABS: CREATININE 0.6 mg/dL (0.55-1.3); PHOSPHOROUS 3.4 mg/dL (2.5-4.9)
[2020-10-26 11:45] LABS: BILIRUBIN,TOTAL 1.9 mg/dL (0.2-1); TOT PROT 8.4 g/dl (6.4-8.2)
[2020-10-26] MEDS ORDERED: POTASSIUM CHLORIDE TABS 20 MEQ TABLET.ER (FP) PO ONE (12:04)
[2020-10-26] MEDS ORDERED: POTASSIUM CHLORIDE ORAL LIQUID 20 MEQ/15 ML PO ONE (15:06)
[2020-10-26] MEDS: KCL 10 MEQ IVPB 10 MEQ/100 ML INFUS.BAG IVPB SCH ×3 (15:09→19:22)
[2020-10-26] MEDS ORDERED: THIAMINE HCL 200 MG/2 ML VIAL IVPB ONE ×2 (15:17→22:15)
[2020-10-26] MEDS ORDERED: LORazepam 2 MG/ML SDV VIAL IVPUSH PRN (16:00)
[2020-10-26] MEDS ORDERED: DEXMEDETOMIDINE IN 0.9 % NACL 200 MCG/50 ML EACH IVPB SCH (16:15)
[2020-10-26] MEDS: NACL IVPB SCH ×2 (18:00→22:17)
[2020-10-26] MEDS: DEXMEDETOMIDINE IVPB SCH ×2 (18:00→22:17)
[2020-10-26] MEDS ORDERED: morphine SULFATE 4 MG/ML VIAL IVPUSH PRN (18:44)
[2020-10-26] MEDS ORDERED: DEXTROSE 5%-NORMAL SALINE 1,000 ML IV SCH (18:44)
[2020-10-26] MEDS ORDERED: LABETALOL HCL 5 MG/1 ML (100MG/20 ML VIAL) IVPUSH PRN (18:44)
[2020-10-26] MEDS ORDERED: DOCUSATE SODIUM 100 MG CAPSULE (FP) PO PRN (18:44)
[2020-10-26] MEDS ORDERED: CHLORHEXIDINE GLUCONATE 4% CLEANSER FOR DECOLONIZATION TP SCH (22:00)
[2020-10-26] MEDS ORDERED: morphine SO4 SUSTAINED ACTING 100 MG TABLET.SA PO SCH (22:00)
[2020-10-27] MEDS ORDERED: DEXTROSE 5%-WATER - 50 ML IVPB ONE (01:50)
[2020-10-27] MEDS ORDERED: PIPERACILLIN/TAZOBACTAM 3.375 GM VIAL IVPB ONE (01:50)
[2020-10-27] MEDS: PIPERACILLIN/TAZOB 3.375 GM 3.375 GM in DEXTROSE 5%-WATER - 50 ML IVPB SCH ×2 (01:54→10:54)
[2020-10-27 07:36] VITALS: BP 111/74; PULSE 83; TEMP 98
[2020-10-27] MEDS: HEPARIN NA (PORCINE) 5,000 UNITS/ML 1ML VIAL SQ SCH (07:45)
[2020-10-27 07:50] LABS: BASO % 0.2 % (0-2.0); EOS % 1.7 % (0-4.5); HEMATOCRIT 33.4 % (35.4-49); LYMPH % 13.5 % (8-40); MCHC 29.8 g/dl (32.0-35.9); MEAN CELL VOLUME 51.2 fl (80-96); MEAN PLT VOLUME 8.3 fl (7.5-11.1); MONO % 10.4 % (3.8-10.2); NEUT % 74.2 % (42.8-82.8); PLATELET COUNT 330 10^3/uL (134-434); RBC 6.52 M/mm3 (4.00-5.60); RDW 20.9 % (11.9-15.9); WHITE BLOOD COUNT 11.2 K/mm3 (4.0-10.0)
[2020-10-27 07:55] LABS: MCH 15.3 pg (25.7-33.7)
[2020-10-27 08:05] LABS: BLOOD UREA NITROGEN 18.8 mg/dL (7-18); CALCIUM 8.7 mg/dL (8.5-10.1)
[2020-10-27 08:06] LABS: MAGNESIUM 2.3 mg/dL (1.8-2.4)
[2020-10-27 08:09] LABS: CREATININE 0.6 mg/dL (0.55-1.3); PHOSPHOROUS 2.7 mg/dL (2.5-4.9)
[2020-10-27] MEDS ORDERED: PANTOPRAZOLE SODIUM 40 MG VIAL IVPUSH SCH (10:00)
[2020-10-27] MEDS ORDERED: POTASSIUM CHLORIDE ORAL LIQUID 20 MEQ/15 ML PO ONE (10:12)
[2020-10-27] MEDS: MUPIROCIN 2% TOPICAL OINTMENT FOR DECOLONIZATION NS SCH (10:54)
[2020-10-27] MEDS ORDERED: D5-NS + 20 MEQ KCL - 20 MEQ/1,000 ML INFUS.BAG IV SCH (13:18)
== END 2020-10-27 15:33 | disposition left against medical advice (07) | DRG 710 ==
LOC: JER 03:03 → JERBED 03:35 → JICU 06:45 → J6S 10-25 14:45 → JICU 10-26 14:18
PROVIDERS: ADMIT Internal Medicine Pulmonary Disease; ATTEND Internal Medicine
PROC: 5A1945Z Respiratory Ventilation, 24-96 Consecutive Hours (ICD-10-PCS; 2020-10-21)
PROC: 0BH17EZ Insertion of Endotracheal Airway into Trachea, Via Natural or Artificial Opening (ICD-10-PCS; 2020-10-21)
PROC: 05HN33Z Insertion of Infusion Device into Left Internal Jugular Vein, Percutaneous Approach (ICD-10-PCS; 2020-10-21)
PROC: B544ZZA Ultrasonography of Left Jugular Veins, Guidance (ICD-10-PCS; 2020-10-21)
PROC: 0WQF0ZZ Repair Abdominal Wall, Open Approach (ICD-10-PCS; principal; 2020-10-21 10:30)
PROC: 0DT80ZZ Resection of Small Intestine, Open Approach (ICD-10-PCS; 2020-10-21 10:30)
DX: A41.9 Sepsis, unspecified organism (principal); J96.00 Acute respiratory failure, unspecified whether with hypoxia or hypercapnia; K55.029 Acute infarction of small intestine, extent unspecified; G93.41 Metabolic encephalopathy; I47.2 Ventricular tachycardia; K43.0 Incisional hernia with obstruction, without gangrene; N17.9 Acute kidney failure, unspecified; E87.1 Hypo-osmolality and hyponatremia; E87.2 Acidosis; F14.20 Cocaine dependence, uncomplicated; I11.0 Hypertensive heart disease with heart failure; L03.115 Cellulitis of right lower limb; L97.909 Non-pressure chronic ulcer of unspecified part of unspecified lower leg with unspecified severity; F31.9 Bipolar disorder, unspecified; R41.82 Altered mental status, unspecified; E66.9 Obesity, unspecified; Z68.29 Body mass index [BMI] 29.0-29.9, adult; F41.8 Other specified anxiety disorders; I50.32 Chronic diastolic (congestive) heart failure; E87.6 Hypokalemia; L03.116 Cellulitis of left lower limb; I16.0 Hypertensive urgency; D72.829 Elevated white blood cell count, unspecified; F17.210 Nicotine dependence, cigarettes, uncomplicated
CPT/HCPCS: 36415; 36600; 70450-TC; 71045-TC-FY; 71260-TC; 72125-TC; 74177-TC; 80048; 80053; 80061; 80307; 81003; 82550; 82553; 82803; 82962; 83036; 83605; 83735; 83880; 84100; 84443; 84484; 85025; 85610; 85651; 85730; 86140; 86850; 86870; 86900; 86901; 86902; 87040; 87086; 93005; 93010; 93306-TC; 94002; 94010; 94760; 97116-GP; 97161-GP; 99291; C9803; J0131; J1644; Q9967; U0003; U0005

== ENCOUNTER 2021-03-25 16:20 | Inpatient (IN) | payer OTHER ==
[2021-03-25 16:25] VITALS: BMI 32.1
[2021-03-25] MEDS ORDERED: VANCOMYCIN 1 GM in D5W (PRE-DOCKED) 1,000 MG/250 ML IVPB ONE (17:38)
[2021-03-25] MEDS ORDERED: CLINDAMYCIN 900 MG PREMIX IVPB 900 MG/50 ML BAG IVPB ONE ×2 (17:49→18:36)
[2021-03-25] MEDS ORDERED: PIPERACILLIN/TAZOB 4.5 GM 4.5 GM in DEXTROSE 5%-WATER 100 ML IVPB ONE (17:49)
[2021-03-25] MEDS ORDERED: PIPERACILLIN/TAZOB 4.5 GM 4.5 GM/100 ML BAG IVPB ONE (18:36)
[2021-03-25] MEDS ORDERED: VANCOMYCIN 1 GRAM (PRE-DOCKED) 1,000 MG/250 ML BAG IVPB ONE (18:37)
[2021-03-25 18:40] LABS: BASO % 0.4 % (0-2.0); EOS % 1.1 % (0-4.5); HEMATOCRIT 28.9 % (35.4-49); HEMOGLOBIN 9.5 GM/dL (11.7-16.9); LYMPH % 15.6 % (8-40); MCH 20.7 pg (25.7-33.7); MCHC 32.8 g/dl (32.0-35.9); MEAN CELL VOLUME 63.1 fl (80-96); MEAN PLT VOLUME 6.9 fl (7.5-11.1); MONO % 11.5 % (3.8-10.2); NEUT % 71.4 % (42.8-82.8); PLATELET COUNT 392 10^3/uL (134-434); RBC 4.58 M/mm3 (4.00-5.60); RDW 18.3 % (11.9-15.9); WHITE BLOOD COUNT 9.4 K/mm3 (4.0-10.0)
[2021-03-25 19:00] LABS: CHLORIDE 97 mmol/L (98-107); SODIUM 134 mmol/L (136-145)
[2021-03-25 19:03] LABS: ALBUMIN 2.6 g/dl (3.4-5.0); ANION GAP 5 MMOL/L (8-16); ANISOCYTOSIS 2+; CALCIUM 8.8 mg/dL (8.5-10.1); CO2 32 mmol/L (21-32); GLUCOSE,RANDOM 101 mg/dL (74-106); MACROCYTOSIS 0; PLATELET ESTIMATE NORMAL; TARGET CELLS 1+; TEAR DROP CELLS 1+
[2021-03-25 19:04] LABS: BLOOD UREA NITROGEN 8.9 mg/dL (7-18)
[2021-03-25 19:06] LABS: CREATININE 0.7 mg/dL (0.55-1.3)
[2021-03-25 19:07] LABS: SGOT/AST 36 U/L (15-37); SGPT/ALT 17 U/L (13-61)
[2021-03-25 19:08] LABS: BILIRUBIN,TOTAL 0.5 mg/dL (0.2-1); TOT PROT 6.6 g/dl (6.4-8.2)
[2021-03-25 19:09] LABS: ALK PHOS 90 U/L (45-117)
[2021-03-25 19:19] LABS: ERYTHROCYTE SEDIMENTATION RATE 36 mm/hr (0-20)
[2021-03-25 20:00] LABS: N-TERMINAL BNP 112.1 pg/ml (5-125)
[2021-03-25 20:45] LABS: CALCIUM 8.9 mg/dL (8.5-10.1)
[2021-03-25 20:46] LABS: BLOOD UREA NITROGEN 9.7 mg/dL (7-18)
[2021-03-25 20:49] LABS: CREATININE 0.7 mg/dL (0.55-1.3)
[2021-03-25] MEDS ORDERED: morphine CARPU-JECT 4 MG/1 ML DISP.SYRIN IVPUSH ONE (23:11)
[2021-03-25] MEDS ORDERED: ACETAMINOPHEN 1000 MG/100 ML BAG IVPB ONE (23:11)
[2021-03-25] MEDS ORDERED: ACETAMINOPHEN INJECTION 100 ML IVPB ONE (23:17)
[2021-03-26] MEDS ORDERED: morphine SULFATE 4 MG/ML VIAL ONE (00:14)
[2021-03-26 00:37] LABS: BLOOD UREA NITROGEN 9.2 mg/dL (7-18); CALCIUM 8.6 mg/dL (8.5-10.1)
[2021-03-26 00:41] LABS: CREATININE 0.6 mg/dL (0.55-1.3)
[2021-03-26] MEDS ORDERED: SODIUM CHLORIDE 500 ML IV STA (04:54)
[2021-03-26 05:25] LABS: COCAINE, UR NEGATIVE (NEGATIVE); METHADONE, UR NEGATIVE (NEGATIVE); PHENCYCLIDINE,URINE NEGATIVE (NEGATIVE)
[2021-03-26 05:26] LABS: URINE AMPHETAMINES NEGATIVE (NEGATIVE); URINE BARBITURATES NEGATIVE (NEGATIVE)
[2021-03-26 06:49] LABS: OPIATES, URI POSITIVE (NEGATIVE); URINE BENZODIAZEPINES NEGATIVE (NEGATIVE)
[2021-03-26 06:54] LABS: PH,URINE 5.5 (5.0-8.0); URINE APPEARANCE CLEAR; URINE BILIRUBIN NEGATIVE (NEGATIVE); URINE COLOR YELLOW; URINE GLUCOSE (UA) NEGATIVE (NEGATIVE); URINE KETONE NEGATIVE (NEGATIVE)
[2021-03-26 06:55] LABS: URINE LEUK ESTERASE NEGATIVE (NEGATIVE); URINE NITRITE NEGATIVE (NEGATIVE); URINE PROTEIN NEGATIVE (NEGATIVE)
[2021-03-26] MEDS: HEPARIN NA (PORCINE) 5,000 UNITS/ML 1ML VIAL SQ SCH ×2 (09:24→21:56)
[2021-03-26] MEDS ORDERED: VANCOMYCIN/WATER 1,250 MG/250 ML BAG IVPB SCH ×2 (10:00→10:06)
[2021-03-26] MEDS ORDERED: DEXTROSE 5%-WATER 100 ML IVPB ONE ×2 (11:06→18:01)
[2021-03-26] MEDS ORDERED: PIPERACILLIN/TAZOBACTAM 4.5 GM VIAL IVPB ONE ×2 (11:06→18:01)
[2021-03-26] MEDS: VANCOMYCIN 1 GRAM (PRE-DOCKED) 1,000 MG/250 ML BAG IVPB SCH ×2 (11:10→22:32)
[2021-03-26] MEDS: PIPERACILLIN/TAZOB 4.5 GM 4.5 GM in DEXTROSE 5%-WATER 100 ML IVPB SCH ×2 (11:10→18:17)
[2021-03-26 15:20] LABS: BASO % 0.2 % (0-2.0); EOS % 1.1 % (0-4.5); HEMATOCRIT 28.3 % (35.4-49); HEMOGLOBIN 9.1 GM/dL (11.7-16.9); LYMPH % 15.1 % (8-40); MCH 20.2 pg (25.7-33.7); MCHC 32.2 g/dl (32.0-35.9); MEAN CELL VOLUME 62.7 fl (80-96); MEAN PLT VOLUME 7.1 fl (7.5-11.1); MONO % 12.5 % (3.8-10.2); NEUT % 71.1 % (42.8-82.8); PLATELET COUNT 346 10^3/uL (134-434); RDW 18.9 % (11.9-15.9); WHITE BLOOD COUNT 7.6 K/mm3 (4.0-10.0)
[2021-03-26 15:40] LABS: CALCIUM 8.5 mg/dL (8.5-10.1)
[2021-03-26 15:41] LABS: ALBUMIN 2.5 g/dl (3.4-5.0); BLOOD UREA NITROGEN 7.1 mg/dL (7-18)
[2021-03-26 15:44] LABS: CREATININE 0.7 mg/dL (0.55-1.3)
[2021-03-26 15:45] LABS: TOT PROT 6.1 g/dl (6.4-8.2)
[2021-03-26 15:46] LABS: BILIRUBIN,TOTAL 0.4 mg/dL (0.2-1)
[2021-03-26] MEDS: ACETAMINOPHEN 325 MG TABLET (FP) PO PRN (20:26)
[2021-03-26] MEDS ORDERED: KETOROLAC TROMETHAMINE 30 MG/1 ML VIAL IVPB ONE (20:57)
[2021-03-26] MEDS: ATORVASTATIN CA 40 MG TABLET (FP) PO SCH (22:37)
[2021-03-27] MEDS ORDERED: PIPERACILLIN/TAZOBACTAM 4.5 GM VIAL IVPB ONE ×2 (00:54→08:27)
[2021-03-27] MEDS ORDERED: DEXTROSE 5%-WATER 100 ML IVPB ONE ×2 (00:54→08:27)
[2021-03-27] MEDS: PIPERACILLIN/TAZOB 4.5 GM 4.5 GM in DEXTROSE 5%-WATER 100 ML IVPB SCH ×2 (02:02→09:09)
[2021-03-27 08:02] LABS: BASO % 0.2 % (0-2.0); EOS % 2.3 % (0-4.5); HEMATOCRIT 26.6 % (35.4-49); HEMOGLOBIN 8.5 GM/dL (11.7-16.9); LYMPH % 24.9 % (8-40); MCH 20.2 pg (25.7-33.7); MEAN CELL VOLUME 63.3 fl (80-96); MEAN PLT VOLUME 8.4 fl (7.5-11.1); MONO % 11.4 % (3.8-10.2); NEUT % 61.2 % (42.8-82.8); PLATELET COUNT 296 10^3/uL (134-434); RDW 18.8 % (11.9-15.9); WHITE BLOOD COUNT 4.9 K/mm3 (4.0-10.0)
[2021-03-27 08:33] LABS: ALBUMIN 2.3 g/dl (3.4-5.0); BLOOD UREA NITROGEN 8.4 mg/dL (7-18)
[2021-03-27 08:36] LABS: CREATININE 0.6 mg/dL (0.55-1.3)
[2021-03-27 08:37] LABS: BILIRUBIN,TOTAL 0.4 mg/dL (0.2-1)
[2021-03-27 08:38] LABS: TOT PROT 5.7 g/dl (6.4-8.2)
[2021-03-27] MEDS: HEPARIN NA (PORCINE) 5,000 UNITS/ML 1ML VIAL SQ SCH ×2 (09:07→23:33)
[2021-03-27] MEDS: LISINOPRIL 20 MG TABLET PO SCH (09:08)
[2021-03-27] MEDS: VANCOMYCIN 1 GRAM (PRE-DOCKED) 1,000 MG/250 ML BAG IVPB SCH (10:20)
[2021-03-27] MEDS: ACETAMINOPHEN 325 MG TABLET (FP) PO PRN ×2 (12:08→23:39)
[2021-03-27] MEDS: SILVER SULFADIAZINE 1% TOP CREAM 50 GM JAR TP SCH (12:20)
[2021-03-27] MEDS ORDERED: oxyCODONE HCL 5 MG TABLET PO ONE (14:30)
[2021-03-27] MEDS ORDERED: oxyCODONE HCL 5 MG TABLET PO PRN (16:12)
[2021-03-27] MEDS ORDERED: CEFAZOLIN 2 GM in SODIUM CHLORIDE 100 ML IVPB SCH (18:00)
[2021-03-27] MEDS: VANCOMYCIN/WATER BAGS 1,250 MG/250 ML BAG IVPB SCH (23:32)
[2021-03-27] MEDS: ATORVASTATIN CA 40 MG TABLET (FP) PO SCH (23:33)
[2021-03-28] MEDS: LEVOTHYROXINE NA 25 MCG TABLET (FP) PO SCH (06:00)
[2021-03-28] MEDS: LISINOPRIL 20 MG TABLET PO SCH (09:25)
[2021-03-28] MEDS: VANCOMYCIN/WATER BAGS 1,250 MG/250 ML BAG IVPB SCH (09:25)
[2021-03-28] MEDS: HEPARIN NA (PORCINE) 5,000 UNITS/ML 1ML VIAL SQ SCH ×3 (09:26→21:09)
[2021-03-28] MEDS: SILVER SULFADIAZINE 1% TOP CREAM 50 GM JAR TP SCH (09:30)
[2021-03-28] MEDS ORDERED: IRON SUCROSE INJECTION 200 MG in SODIUM CHLORIDE 90 ML IVPB ONE (10:00)
[2021-03-28] MEDS: CEFAZOLIN 2 GM in SODIUM CHLORIDE 100 ML IVPB SCH (17:49)
[2021-03-28] MEDS ORDERED: ceFAZolin 2 GRAM PREMIX BAG IVPB SCH (18:00)
[2021-03-28] MEDS: ATORVASTATIN CA 40 MG TABLET (FP) PO SCH ×2 (21:05→21:10)
[2021-03-29] MEDS: CEFAZOLIN 2 GM in SODIUM CHLORIDE 100 ML IVPB SCH ×4 (01:21→17:47)
[2021-03-29] MEDS: LEVOTHYROXINE NA 25 MCG TABLET (FP) PO SCH (06:10)
[2021-03-29 09:00] LABS: BASO % 0.5 % (0-2.0); EOS % 1.7 % (0-4.5); HEMATOCRIT 33.4 % (35.4-49); HEMOGLOBIN 10.9 GM/dL (11.7-16.9); LYMPH % 22.1 % (8-40); MCH 20.6 pg (25.7-33.7); MCHC 32.7 g/dl (32.0-35.9); MEAN PLT VOLUME 6.9 fl (7.5-11.1); MONO % 12.1 % (3.8-10.2); NEUT % 63.6 % (42.8-82.8); PLATELET COUNT 385 10^3/uL (134-434); RDW 18.9 % (11.9-15.9); WHITE BLOOD COUNT 5.7 K/mm3 (4.0-10.0)
[2021-03-29 09:10] LABS: INR 1.16 (0.83-1.09); PROTHROMBIN TIME (PATIENT) 13.4 SEC (9.7-13.0)
[2021-03-29 09:32] LABS: BLOOD UREA NITROGEN 5.8 mg/dL (7-18); CALCIUM 8.7 mg/dL (8.5-10.1)
[2021-03-29 09:33] LABS: MAGNESIUM 2.3 mg/dL (1.8-2.4)
[2021-03-29 09:35] LABS: PHOSPHOROUS 3.6 mg/dL (2.5-4.9)
[2021-03-29 09:36] LABS: CREATININE 0.6 mg/dL (0.55-1.3)
[2021-03-29 09:37] LABS: BILIRUBIN,TOTAL 0.4 mg/dL (0.2-1)
[2021-03-29 09:39] LABS: ALBUMIN 2.7 g/dl (3.4-5.0)
[2021-03-29] MEDS: HEPARIN NA (PORCINE) 5,000 UNITS/ML 1ML VIAL SQ SCH ×2 (10:18→22:07)
[2021-03-29] MEDS: LISINOPRIL 20 MG TABLET PO SCH (10:19)
[2021-03-29] MEDS: SILVER SULFADIAZINE 1% TOP CREAM 50 GM JAR TP SCH (10:19)
[2021-03-29 10:25] LABS: HIV INTERPRETATION NEGATIVE (NEGATIVE)
[2021-03-29] MEDS: ATORVASTATIN CA 40 MG TABLET (FP) PO SCH (22:07)
[2021-03-29] MEDS: CEPHALEXIN MONOHYDRATE 500 MG CAPSULE (UD) PO SCH (22:07)
[2021-03-30] MEDS: LEVOTHYROXINE NA 25 MCG TABLET (FP) PO SCH (06:46)
[2021-03-30] MEDS: CEPHALEXIN MONOHYDRATE 500 MG CAPSULE (UD) PO SCH ×2 (06:46→13:40)
[2021-03-30] MEDS: HEPARIN NA (PORCINE) 5,000 UNITS/ML 1ML VIAL SQ SCH (10:20)
[2021-03-30] MEDS: LISINOPRIL 20 MG TABLET PO SCH (10:20)
[2021-03-30] MEDS: SILVER SULFADIAZINE 1% TOP CREAM 50 GM JAR TP SCH ×2 (10:21→13:28)
[2021-03-30 14:28] VITALS: BP 124/81; PULSE 78; TEMP 97.6
== END 2021-03-30 14:51 | DRG 383 ==
LOC: JER 16:20 → JERBED 23:11 → J7W 03-26 08:06
PROVIDERS: ADMIT Internal Medicine; ATTEND Family Medicine
DX: L03.115 Cellulitis of right lower limb (principal); L03.116 Cellulitis of left lower limb; I11.0 Hypertensive heart disease with heart failure; D50.9 Iron deficiency anemia, unspecified; E78.5 Hyperlipidemia, unspecified; F11.20 Opioid dependence, uncomplicated; F12.20 Cannabis dependence, uncomplicated; I50.9 Heart failure, unspecified; I73.9 Peripheral vascular disease, unspecified; F19.10 Other psychoactive substance abuse, uncomplicated; R41.82 Altered mental status, unspecified; E66.9 Obesity, unspecified; Z68.32 Body mass index [BMI] 32.0-32.9, adult; F17.210 Nicotine dependence, cigarettes, uncomplicated
CPT/HCPCS: 36415; 71045-TC-FY; 73701-TC-RT; 80048; 80053; 80307; 81003; 82550; 82553; 82607; 82728; 82962; 83540; 83550; 83605; 83735; 83880; 84100; 84443; 84484; 85025; 85610; 85651; 86140; 87040; 87070; 87077; 87086; 87186; 87205; 87389; 93005; 93010; 97116-GP; 97162-GP; 99285-25; C9803; G0480; J0131; J1644; J1756; Q9967; U0003; U0005

== ENCOUNTER 2022-09-11 19:38 | Inpatient (IN) | payer OTHER ==
[2022-09-11] MEDS ORDERED: SODIUM CHLORIDE 3,538 ML IV ONE (20:30)
[2022-09-11] MEDS ORDERED: HALOPERIDOL LACTATE 5 MG/ML IM ONE ×2 (20:49)
[2022-09-11] MEDS ORDERED: LORazepam 2 MG/ML SDV VIAL IM STA (20:49)
[2022-09-11 21:43] LABS: VENOUS BASE EXCESS -0.4 mmol/L (-2-2); VENOUS O2 SATURATION 93.3 % (70-80); VENOUS PH 7.477 (7.310-7.410)
[2022-09-11 21:45] LABS: BASO % 0.1 % (0-2.0); EOS % 0.4 % (0-4.5); HEMATOCRIT 48.7 % (35.4-49); HEMOGLOBIN 15.4 GM/dL (11.7-16.9); LYMPH % 7.4 % (8-40); MCHC 31.7 g/dl (32.0-35.9); MEAN CELL VOLUME 58.7 fl (80-96); MEAN PLT VOLUME 8.5 fl (7.5-11.1); MONO % 6.8 % (3.8-10.2); NEUT % 85.3 % (42.8-82.8); PLATELET COUNT 480 10^3/uL (134-434); RDW 20.4 % (11.9-15.9); WHITE BLOOD COUNT 15.7 K/mm3 (4.0-10.0)
[2022-09-11 21:50] LABS: EPI CELLS >36 /uL (0-25.1); HYALINE CASTS 7 /uL (0-3.1); PH,URINE 5.5 (5.0-8.0); URINE APPEARANCE TURBID; URINE BACTERIA 180 /uL (0-1359); URINE BILIRUBIN 2+ (NEGATIVE); URINE COLOR DK YELLOW; URINE GLUCOSE (UA) NEGATIVE (NEGATIVE); URINE KETONE TRACE (NEGATIVE); URINE LEUK ESTERASE 1+ (NEGATIVE); URINE NITRITE NEGATIVE (NEGATIVE); URINE PROTEIN 2+ (NEGATIVE); URINE RBC 5 /uL (0-23.9); URINE WBC 97 /uL (0-25.8)
[2022-09-11 21:55] LABS: MCH 18.6 pg (25.7-33.7); RBC 8.29 M/mm3 (4.00-5.60)
[2022-09-11 22:02] LABS: CHLORIDE 93 mmol/L (98-107); SODIUM 132 mmol/L (136-145)
[2022-09-11 22:05] LABS: ALBUMIN 3.4 g/dl (3.4-5.0); BLOOD UREA NITROGEN 16.4 mg/dL (7-18); CALCIUM 10.5 mg/dL (8.5-10.1); CO2 25 mmol/L (21-32); GLUCOSE,RANDOM 173 mg/dL (74-106)
[2022-09-11 22:07] LABS: INR 1.17 (0.83-1.09); PROTHROMBIN TIME (PATIENT) 13.5 SEC (9.7-13.0); SGOT/AST 73 U/L (15-37)
[2022-09-11 22:10] LABS: ACTIVATED PTT 33.4 SECONDS (25.2-36.5); BILIRUBIN,TOTAL 1.3 mg/dL (0.2-1); TOT PROT 10.3 g/dl (6.4-8.2)
[2022-09-11 22:11] LABS: ALK PHOS 239 U/L (45-117)
[2022-09-11 22:18] LABS: LACTIC ACID 2.7 mmol/L (0.4-2.0)
[2022-09-11 22:19] LABS: ANION GAP 14 MMOL/L (8-16); POTASSIUM 7.5 mmol/L (3.5-5.1); SGPT/ALT 24 U/L (13-61)
[2022-09-11] MEDS ORDERED: ONDANSETRON 4 MG/2 ML VIAL IVPUSH ONE (22:19)
[2022-09-11 22:22] LABS: URINE CRYSTALS FEW /hpf
[2022-09-11] MEDS ORDERED: morphine CARPU-JECT 4 MG/1 ML DISP.SYRIN IVPUSH ONE (22:58)
[2022-09-11 23:00] LABS: POTASSIUM 4.2 mmol/L (3.5-5.1)
[2022-09-11] MEDS ORDERED: morphine SULFATE 4 MG/ML VIAL ONE (23:04)
[2022-09-11] MEDS ORDERED: ONDANSETRON 4 MG/2 ML VIAL ONE (23:04)
[2022-09-11] MEDS ORDERED: VANCOMYCIN 1,000 MG in DEXTROSE 5%-WATER - 250 ML IVPB ONE (23:17)
[2022-09-11] MEDS ORDERED: PIPERACILLIN/TAZOB 3.375 GM 3.375 GM in DEXTROSE 5%-WATER - 50 ML IVPB ONE (23:18)
[2022-09-11 23:26] LABS: ANISOCYTOSIS 3+; MACROCYTOSIS 0
[2022-09-12] MEDS ORDERED: PIPERACILLIN/TAZOB 3.375 GM 3.375 GM/50 ML BAG IVPB ONE (00:43)
[2022-09-12] MEDS ORDERED: CEFTRIAXONE 1 GM/50 ML BAG ONE (00:43)
[2022-09-12] MEDS ORDERED: VANCOMYCIN/WATER FOR INJ (PEG) 1,000 MG/200 ML BAG IVPB ONE (00:43)
[2022-09-12] MEDS ORDERED: DEXTROSE 5%-0.45% SALINE 1,000 ML IV SCH (02:00)
[2022-09-12 03:29] LABS: LACTIC ACID 4.2 mmol/L (0.4-2.0)
[2022-09-12] MEDS ORDERED: SODIUM CHLORIDE 1,000 ML IV STA (03:57)
[2022-09-12] MEDS ORDERED: BUPIVACAINE HCL/PF 0.25% (2.5MG/ML) 10 ML VIAL ONE (07:55)
[2022-09-12] MEDS ORDERED: LIDOCAINE HCL/PF 2% SDV 5ML VIAL ONE (08:04)
[2022-09-12] MEDS ORDERED: HYDROmorphone HCl 2 MG/ML VIAL ONE ×4 (08:04→13:52)
[2022-09-12] MEDS ORDERED: SUCCINYLCHOLINE CHLORIDE 200 MG/10 ML SYRINGE ONE (08:05)
[2022-09-12] MEDS ORDERED: ROCURONIUM BROMIDE 50 MG/5 ML SYRINGE ONE ×2 (08:05→09:23)
[2022-09-12] MEDS ORDERED: PROPOFOL 40 ML ONE (08:05)
[2022-09-12] MEDS ORDERED: PIPERACILLIN/TAZOB 4.5 GM 4.5 GM in DEXTROSE 5%-WATER 100 ML IVPB SCH (09:00)
[2022-09-12] MEDS ORDERED: ONDANSETRON 4 MG/2 ML VIAL ONE (09:06)
[2022-09-12] MEDS ORDERED: DEXAMETHASONE SOD PHOSPHATE 4 MG/1 ML VIAL ONE (09:06)
[2022-09-12] MEDS ORDERED: HEPARIN NA (PORCINE) 5,000 UNITS/ML 1ML VIAL ONE (09:10)
[2022-09-12] MEDS ORDERED: PIPERACILLIN/TAZOBACTAM 4.5 GM VIAL IVPB ONE (09:17)
[2022-09-12] MEDS ORDERED: GLYCOPYRROLATE 0.2 MG/1 ML VIAL ONE (09:50)
[2022-09-12] MEDS ORDERED: NEOSTIGMINE METHYLSULFATE 0.5 MG/1 ML - 10 ML MDV ONE (09:50)
[2022-09-12] MEDS ORDERED: BACITRACIN ZINC 15 GM TUBE TOPICAL OINTMENT TP ONE (10:25)
[2022-09-12] MEDS ORDERED: BACITRACIN ZINC 15 GM TUBE TOPICAL OINTMENT ONE (10:26)
[2022-09-12] MEDS: hydrALAZINE HCL 20 MG/ML VIAL IVPUSH ONE ×2 (11:45→14:41)
[2022-09-12] MEDS ORDERED: hydrALAZINE HCL 20 MG/ML VIAL ONE (11:46)
[2022-09-12] MEDS: LORazepam 2 MG/ML SDV VIAL IVPB SCH ×3 (11:55→14:37)
[2022-09-12] MEDS ORDERED: hydrALAZINE HCL 20 MG/ML VIAL IVPUSH ONE (13:28)
[2022-09-12] MEDS ORDERED: LABETALOL HCL 20 MG/4 ML VIAL ONE (14:39)
[2022-09-12] MEDS: DEXTROSE 5%-0.45% SALINE 1,000 ML IV SCH ×2 (14:42→23:00)
[2022-09-12] MEDS: LORazepam 2 MG/ML SDV VIAL IVPUSH PRN (14:48)
[2022-09-12] MEDS: DEXMEDETOMIDINE PREMIX 400 MCG/100 ML BAG IVPB SCH (14:56)
[2022-09-12] MEDS ORDERED: LABETALOL HCL 20 MG/4 ML VIAL IVPUSH ONE (15:00)
[2022-09-12] MEDS: VANCOMYCIN/WATER 1250 MG 1,250 MG/250 ML BAG IVPB SCH (15:14)
[2022-09-12] MEDS ORDERED: VANCOMYCIN/WATER 1250 MG 1,250 MG/250 ML BAG IVPB SCH ×2 (16:00)
[2022-09-12] MEDS ORDERED: LABETALOL HCL 5 MG/1 ML (100MG/20 ML VIAL) IVPUSH PRN (16:24)
[2022-09-12] MEDS: PIPERACILLIN/TAZOB 4.5 GM 4.5 GM in DEXTROSE 5%-WATER 100 ML IVPB SCH (17:02)
[2022-09-12 20:36] LABS: HEMATOCRIT 42.1 % (35.4-49); HEMOGLOBIN 13.8 GM/dL (11.7-16.9); MCHC 32.7 g/dl (32.0-35.9); MEAN CELL VOLUME 56.9 fl (80-96); MEAN PLT VOLUME 8.3 fl (7.5-11.1); PLATELET COUNT 399 10^3/uL (134-434); RDW 20.3 % (11.9-15.9); WHITE BLOOD COUNT 15.8 K/mm3 (4.0-10.0)
[2022-09-12 20:37] LABS: MCH 18.6 pg (25.7-33.7)
[2022-09-12 20:43] LABS: INR 1.31 (0.83-1.09); PROTHROMBIN TIME (PATIENT) 15.2 SEC (9.7-13.0)
[2022-09-12 20:45] LABS: ACTIVATED PTT 30.7 SECONDS (25.2-36.5)
[2022-09-12 20:51] LABS: POTASSIUM 3.8 mmol/L (3.5-5.1)
[2022-09-12 20:52] LABS: BLOOD UREA NITROGEN 10.4 mg/dL (7-18)
[2022-09-12 20:55] LABS: CREATININE 0.7 mg/dL (0.55-1.3)
[2022-09-12 21:06] LABS: CALCIUM 8.7 mg/dL (8.5-10.1)
[2022-09-12] MEDS: SILVER SULFADIAZINE 1% TOP CREAM 50 GM JAR TP SCH (22:40)
[2022-09-13] MEDS: PIPERACILLIN/TAZOB 4.5 GM 4.5 GM in DEXTROSE 5%-WATER 100 ML IVPB SCH ×3 (01:11→17:01)
[2022-09-13] MEDS: DEXMEDETOMIDINE PREMIX 400 MCG/100 ML BAG IVPB SCH ×3 (02:30→21:30)
[2022-09-13] MEDS: DEXTROSE 5%-0.45% SALINE 1,000 ML IV SCH (03:13)
[2022-09-13] MEDS: VANCOMYCIN/WATER 1250 MG 1,250 MG/250 ML BAG IVPB SCH ×2 (03:14→13:59)
[2022-09-13] MEDS: ACETAMINOPHEN 1000 MG/100 ML BAG IVPB PRN ×3 (06:11→20:50)
[2022-09-13 07:29] LABS: HEMATOCRIT 40.6 % (35.4-49); HEMOGLOBIN 13.4 GM/dL (11.7-16.9); INR 1.31 (0.83-1.09); MEAN CELL VOLUME 57.5 fl (80-96); MEAN PLT VOLUME 8.3 fl (7.5-11.1); PLATELET COUNT 354 10^3/uL (134-434); PROTHROMBIN TIME (PATIENT) 15.2 SEC (9.7-13.0); RDW 20.4 % (11.9-15.9); WHITE BLOOD COUNT 13.7 K/mm3 (4.0-10.0)
[2022-09-13 07:31] LABS: CALCIUM 8.8 mg/dL (8.5-10.1)
[2022-09-13 07:33] LABS: BLOOD UREA NITROGEN 12.3 mg/dL (7-18)
[2022-09-13 07:36] LABS: CREATININE 0.7 mg/dL (0.55-1.3); PHOSPHOROUS 2.6 mg/dL (2.5-4.9)
[2022-09-13 07:37] LABS: BILIRUBIN,TOTAL 0.9 mg/dL (0.2-1)
[2022-09-13 07:42] LABS: ALBUMIN 2.5 g/dl (3.4-5.0); TOT PROT 7.2 g/dl (6.4-8.2)
[2022-09-13 07:48] LABS: RBC 7.06 M/mm3 (4.00-5.60)
[2022-09-13] MEDS ORDERED: DEXTROSE 5%-0.45% SALINE 1,000 ML IV SCH (08:30)
[2022-09-13] MEDS: SILVER SULFADIAZINE 1% TOP CREAM 50 GM JAR TP SCH ×2 (09:06→21:25)
[2022-09-13] MEDS: ENOXAPARIN NA (PORCINE) 40 MG/0.4 ML DISP.SYRIN SQ SCH (09:06)
[2022-09-13] MEDS ORDERED: LABETALOL HCL 20 MG/4 ML VIAL IVPUSH PRN ×2 (12:07→18:58)
[2022-09-13] MEDS ORDERED: LISINOPRIL 20 MG TABLET PO ONE (14:13)
[2022-09-13] MEDS: LORazepam 2 MG/ML SDV VIAL IVPUSH PRN ×4 (14:14→21:29)
[2022-09-13] MEDS ORDERED: amLODIPine BESYLATE 10 MG TABLET (FP) PO SCH (14:15)
[2022-09-13] MEDS ORDERED: LABETALOL HCL 5 MG/1 ML (100MG/20 ML VIAL) IVPUSH ONE (15:09)
[2022-09-13] MEDS ORDERED: LABETALOL HCL 20 MG/4 ML VIAL IVPUSH ONE (15:30)
[2022-09-13] MEDS ORDERED: hydrALAZINE HCL 20 MG/ML VIAL IVPUSH ONE (15:32)
[2022-09-13] MEDS ORDERED: NICARDIPINE 25 MG in DEXTROSE 5%-WATER - 240 ML IVPB SCH (16:30)
[2022-09-13] MEDS ORDERED: ONDANSETRON 4 MG/2 ML VIAL ONE (19:32)
[2022-09-13] MEDS ORDERED: ONDANSETRON 4 MG/2 ML VIAL IVPUSH ONE (20:13)
[2022-09-13] MEDS: MUPIROCIN 2% TOPICAL OINTMENT FOR DECOLONIZATION NS SCH (21:24)
[2022-09-13] MEDS ORDERED: CHLORHEXIDINE GLUCONATE 4% CLEANSER FOR DECOLONIZATION TP SCH (22:00)
[2022-09-14] MEDS: PIPERACILLIN/TAZOB 4.5 GM 4.5 GM in DEXTROSE 5%-WATER 100 ML IVPB SCH ×2 (02:34→09:56)
[2022-09-14] MEDS: VANCOMYCIN/WATER 1250 MG 1,250 MG/250 ML BAG IVPB SCH ×2 (02:34→17:31)
[2022-09-14] MEDS: DEXMEDETOMIDINE PREMIX 400 MCG/100 ML BAG IVPB SCH ×2 (02:34→07:51)
[2022-09-14] MEDS: LORazepam 2 MG/ML SDV VIAL IVPUSH PRN ×2 (07:13→16:12)
[2022-09-14 07:14] LABS: BASO % 0.2 % (0-2.0); EOS % 0.6 % (0-4.5); HEMATOCRIT 42.3 % (35.4-49); HEMOGLOBIN 13.1 GM/dL (11.7-16.9); LYMPH % 12.8 % (8-40); MCHC 30.9 g/dl (32.0-35.9); MEAN CELL VOLUME 58.9 fl (80-96); MEAN PLT VOLUME 8.4 fl (7.5-11.1); MONO % 9.3 % (3.8-10.2); NEUT % 77.1 % (42.8-82.8); PLATELET COUNT 336 10^3/uL (134-434); RDW 20.5 % (11.9-15.9); WHITE BLOOD COUNT 12.7 K/mm3 (4.0-10.0)
[2022-09-14 07:21] LABS: INR 1.32 (0.83-1.09); PROTHROMBIN TIME (PATIENT) 15.3 SEC (9.7-13.0)
[2022-09-14 07:23] LABS: MCH 18.2 pg (25.7-33.7); RBC 7.19 M/mm3 (4.00-5.60)
[2022-09-14 07:24] LABS: ACTIVATED PTT 27.4 SECONDS (25.2-36.5)
[2022-09-14 07:53] LABS: POTASSIUM 4.1 mmol/L (3.5-5.1)
[2022-09-14 08:06] LABS: ALBUMIN 2.4 g/dl (3.4-5.0); CALCIUM 8.9 mg/dL (8.5-10.1); MAGNESIUM 2.2 mg/dL (1.8-2.4)
[2022-09-14 08:07] LABS: CREATININE 0.8 mg/dL (0.55-1.3); PHOSPHOROUS 2.8 mg/dL (2.5-4.9)
[2022-09-14 08:09] LABS: BILIRUBIN,TOTAL 0.8 mg/dL (0.2-1); TOT PROT 6.7 g/dl (6.4-8.2)
[2022-09-14] MEDS: ENOXAPARIN NA (PORCINE) 40 MG/0.4 ML DISP.SYRIN SQ SCH (09:57)
[2022-09-14] MEDS ORDERED: LISINOPRIL 20 MG TABLET PO SCH (10:00)
[2022-09-14] MEDS ORDERED: amLODIPine BESYLATE 10 MG TABLET (FP) PO SCH (10:00)
[2022-09-14] MEDS: LORazepam 2 MG/ML SDV VIAL IVPUSH SCH ×2 (10:00→13:49)
[2022-09-14] MEDS: MUPIROCIN 2% TOPICAL OINTMENT FOR DECOLONIZATION NS SCH (10:00)
[2022-09-14] MEDS: SILVER SULFADIAZINE 1% TOP CREAM 50 GM JAR TP SCH (10:58)
[2022-09-14 14:32] VITALS: BMI 32.1
[2022-09-14] MEDS ORDERED: LABETALOL HCL 20 MG/4 ML VIAL IVPUSH PRN (19:36)
[2022-09-14] MEDS ORDERED: LABETALOL HCL 5 MG/1 ML (100MG/20 ML VIAL) IVPB ONE (20:13)
[2022-09-14] MEDS ORDERED: HYDROCHLOROTHIAZIDE 25 MG TABLET (FP) PO ONE (21:30)
[2022-09-14] MEDS ORDERED: CHLORHEXIDINE GLUCONATE 4% CLEANSER FOR DECOLONIZATION TP SCH (22:00)
[2022-09-14] MEDS ORDERED: MUPIROCIN 2% TOPICAL OINTMENT FOR DECOLONIZATION NS SCH (22:00)
[2022-09-15] MEDS ORDERED: ACETAMINOPHEN 1000 MG/100 ML BAG IVPB ONE (00:30)
[2022-09-15] MEDS: SILVER SULFADIAZINE 1% TOP CREAM 50 GM JAR TP SCH ×3 (01:38→21:43)
[2022-09-15] MEDS: LORazepam 2 MG/ML SDV VIAL IVPUSH PRN ×3 (01:39→17:55)
[2022-09-15] MEDS: VANCOMYCIN/WATER 1250 MG 1,250 MG/250 ML BAG IVPB SCH ×3 (02:21→19:07)
[2022-09-15 08:54] LABS: BASO % 0.3 % (0-2.0); EOS % 0.5 % (0-4.5); HEMATOCRIT 43.6 % (35.4-49); HEMOGLOBIN 14.4 GM/dL (11.7-16.9); LYMPH % 11.6 % (8-40); MEAN CELL VOLUME 56.9 fl (80-96); MEAN PLT VOLUME 8.2 fl (7.5-11.1); MONO % 9.6 % (3.8-10.2); PLATELET COUNT 443 10^3/uL (134-434); RDW 20.2 % (11.9-15.9); WHITE BLOOD COUNT 14.6 K/mm3 (4.0-10.0)
[2022-09-15 08:55] LABS: MCH 18.8 pg (25.7-33.7); RBC 7.65 M/mm3 (4.00-5.60)
[2022-09-15 09:31] LABS: POTASSIUM 3.4 mmol/L (3.5-5.1)
[2022-09-15 09:34] LABS: CALCIUM 9.6 mg/dL (8.5-10.1)
[2022-09-15 09:35] LABS: BLOOD UREA NITROGEN 10.1 mg/dL (7-18)
[2022-09-15 09:38] LABS: CREATININE 0.6 mg/dL (0.55-1.3); PHOSPHOROUS 2.4 mg/dL (2.5-4.9)
[2022-09-15 09:39] LABS: BILIRUBIN,TOTAL 1.2 mg/dL (0.2-1)
[2022-09-15] MEDS ORDERED: POTASSIUM PHOSPHATE 30 MM in SODIUM CHLORIDE 500 ML IVPB ONE (09:39)
[2022-09-15] MEDS ORDERED: POTASSIUM CHLORIDE TABS 20 MEQ TABLET.ER (FP) PO ONE (09:39)
[2022-09-15 09:40] LABS: TOT PROT 7.8 g/dl (6.4-8.2)
[2022-09-15 09:45] LABS: ALBUMIN 2.9 g/dl (3.4-5.0)
[2022-09-15 10:02] LABS: ANISOCYTOSIS 3+; MACROCYTOSIS 0
[2022-09-15] MEDS ORDERED: cloNIDine HCL 0.1 MG TABLET PO PRN (10:13)
[2022-09-15] MEDS: CEFTRIAXONE 2 GM in DEXTROSE 5%-WATER 100 ML IVPB SCH ×2 (11:02→11:25)
[2022-09-15] MEDS: THIAMINE HCL 100 MG TABLET (FP) PO SCH (11:02)
[2022-09-15] MEDS: ENOXAPARIN NA (PORCINE) 40 MG/0.4 ML DISP.SYRIN SQ SCH ×2 (11:03→11:24)
[2022-09-15] MEDS: LISINOPRIL 20 MG TABLET PO SCH ×2 (11:03→11:22)
[2022-09-15] MEDS: amLODIPine BESYLATE 10 MG TABLET (FP) PO SCH ×2 (11:03→11:24)
[2022-09-15] MEDS: MULTIVITAMINS (DAILY MVI) TABLET (FP) PO SCH (11:03)
[2022-09-15] MEDS: FOLIC ACID 1 MG TABLET (FP) PO SCH ×2 (11:04→11:24)
[2022-09-15] MEDS: methaDONE HCL 10 MG TABLET PO ONE ×2 (11:06→11:25)
[2022-09-16] MEDS: ENOXAPARIN NA (PORCINE) 40 MG/0.4 ML DISP.SYRIN SQ SCH (09:34)
[2022-09-16] MEDS: CEFTRIAXONE 2 GM in DEXTROSE 5%-WATER 100 ML IVPB SCH (09:34)
[2022-09-16] MEDS: FOLIC ACID 1 MG TABLET (FP) PO SCH (09:35)
[2022-09-16] MEDS: amLODIPine BESYLATE 10 MG TABLET (FP) PO SCH (09:35)
[2022-09-16] MEDS: LISINOPRIL 20 MG TABLET PO SCH (09:35)
[2022-09-16] MEDS: MULTIVITAMINS (DAILY MVI) TABLET (FP) PO SCH (09:35)
[2022-09-16] MEDS: THIAMINE HCL 100 MG TABLET (FP) PO SCH (09:36)
[2022-09-16] MEDS: SILVER SULFADIAZINE 1% TOP CREAM 50 GM JAR TP SCH ×2 (09:36→22:45)
[2022-09-17] MEDS ORDERED: ACETAMINOPHEN 1000 MG/100 ML BAG IVPB ONE (00:26)
[2022-09-17 06:50] VITALS: RESP 18
[2022-09-17 07:51] LABS: BASO % 0.2 % (0-2.0); EOS % 2.4 % (0-4.5); HEMATOCRIT 42.6 % (35.4-49); HEMOGLOBIN 13.5 GM/dL (11.7-16.9); LYMPH % 15.6 % (8-40); MCHC 31.6 g/dl (32.0-35.9); MEAN CELL VOLUME 58.6 fl (80-96); MEAN PLT VOLUME 8.7 fl (7.5-11.1); MONO % 9.9 % (3.8-10.2); NEUT % 71.9 % (42.8-82.8); PLATELET COUNT 411 10^3/uL (134-434); RDW 20.6 % (11.9-15.9); WHITE BLOOD COUNT 12.2 K/mm3 (4.0-10.0)
[2022-09-17 08:09] LABS: MCH 18.5 pg (25.7-33.7); POTASSIUM 3.6 mmol/L (3.5-5.1); RBC 7.28 M/mm3 (4.00-5.60)
[2022-09-17 08:11] LABS: CALCIUM 8.8 mg/dL (8.5-10.1)
[2022-09-17 08:12] LABS: ALBUMIN 2.8 g/dl (3.4-5.0); BLOOD UREA NITROGEN 13.1 mg/dL (7-18)
[2022-09-17 08:15] LABS: CREATININE 0.6 mg/dL (0.55-1.3)
[2022-09-17 08:17] LABS: BILIRUBIN,TOTAL 0.5 mg/dL (0.2-1); TOT PROT 7.4 g/dl (6.4-8.2)
[2022-09-17] MEDS ORDERED: methaDONE HCL 10 MG TABLET PO ONE (10:00)
[2022-09-17] MEDS: CEFTRIAXONE 2 GM in DEXTROSE 5%-WATER 100 ML IVPB SCH (10:00)
[2022-09-17] MEDS: FOLIC ACID 1 MG TABLET (FP) PO SCH (10:02)
[2022-09-17] MEDS: THIAMINE HCL 100 MG TABLET (FP) PO SCH (10:02)
[2022-09-17] MEDS: amLODIPine BESYLATE 10 MG TABLET (FP) PO SCH (10:02)
[2022-09-17] MEDS: ENOXAPARIN NA (PORCINE) 40 MG/0.4 ML DISP.SYRIN SQ SCH (10:03)
[2022-09-17] MEDS: LISINOPRIL 20 MG TABLET PO SCH (10:03)
[2022-09-17] MEDS: MULTIVITAMINS (DAILY MVI) TABLET (FP) PO SCH (10:03)
[2022-09-17] MEDS: SILVER SULFADIAZINE 1% TOP CREAM 50 GM JAR TP SCH (10:04)
[2022-09-17 16:05] VITALS: BP 136/86; PULSE 85; TEMP 98.2
== END 2022-09-17 16:55 | disposition left against medical advice (07) | DRG 223 ==
LOC: JER 19:38 → JERBED 09-12 01:53 → JICU 09-12 14:28 → J7W 09-14 18:28
PROVIDERS: ADMIT Internal Medicine; ATTEND Family Medicine
PROC: 0D580ZZ Destruction of Small Intestine, Open Approach (ICD-10-PCS; 2022-09-12)
PROC: 0WJG0ZZ Inspection of Peritoneal Cavity, Open Approach (ICD-10-PCS; 2022-09-12)
PROC: 0DN80ZZ Release Small Intestine, Open Approach (ICD-10-PCS; 2022-09-12)
PROC: 0WQF0ZZ Repair Abdominal Wall, Open Approach (ICD-10-PCS; principal; 2022-09-12 08:00)
DX: K43.6 Other and unspecified ventral hernia with obstruction, without gangrene (principal); I11.0 Hypertensive heart disease with heart failure; E87.20 Acidosis, unspecified; I50.9 Heart failure, unspecified; K56.609 Unspecified intestinal obstruction, unspecified as to partial versus complete obstruction; L03.115 Cellulitis of right lower limb; L03.116 Cellulitis of left lower limb; E78.5 Hyperlipidemia, unspecified; F10.239 Alcohol dependence with withdrawal, unspecified; F31.9 Bipolar disorder, unspecified; I16.0 Hypertensive urgency; I87.8 Other specified disorders of veins
CPT/HCPCS: 0241U-QW; 36415; 71045-TC-FY; 74177-TC; 80048; 80053; 81003; 82550; 82553; 82803; 82962; 83605; 83735; 84100; 84132; 84484; 85025; 85027; 85610; 85730; 86850; 86870; 86900; 86901; 86902; 87040; 87070; 87075; 87086; 87186; 87205; 88302-TC; 93005; 93010; 94760; 99285-25; G0480; J1644; Q9967